=== PATIENT | male | born 1945 | race Caucasian/White ===

== ENCOUNTER 2018-05-28 11:58 | Observation (INO) | payer MEDICARE, OTHER ==
[~2018-05-28] VITALS: Ht 165.1 cm; Wt 74.4 kg
[~2018-05-28 11:58] MED LIST: CARVEDILOL3.125 MG PO; KLONOPIN1 MG PO; LISINOPRIL10 MG PO; PRAVASTATIN SOD40 MG PO; ZANTAC150 MG PO
[2018-05-28] MEDS ORDERED: LASIX80 MG PO (12:55)
[2018-05-28] MEDS ORDERED: FLUOXETINE HCL20 MG PO (12:55)
[2018-05-28] MEDS ORDERED: COREG12.5 MG PO (12:55)
[2018-05-28] MEDS ORDERED: ASPIR 8181 MG PO (12:55)
[2018-05-28] MEDS ORDERED: LASIX40 MG PO (12:55)
[2018-05-28] MEDS ORDERED: NITROGLYCERIN0.4 MG SL (12:55)
[2018-05-28 13:06] LABS: BASOPHILS # (AUTO) 0.1 (0.0-0.1); BASOPHILS % 0.4 % (0.0-1.0); EOSINOPHILS # (AUTO) 0.2 (0.0-0.4); EOSINOPHILS % 1.5 % (0.0-6.0); HEMATOCRIT 37.1 % (38.2-49.6); HEMOGLOBIN 12.2 g/dL (14.0-18.0); LYMPHOCYTES # (AUTO) 2.7 (1.0-3.2); LYMPHOCYTES % 24.3 % (18.0-39.1); MEAN CORPUSCULAR HEMOGLOBIN 30.2 pg (28-32); MEAN CORPUSCULAR HGB CONC 32.9 g/dL (31-35); MEAN CORPUSCULAR VOLUME 91.8 fL (81-99); MONOCYTES % 8.8 % (4.4-11.3); NEUTROPHILS # (AUTO) 7.2 (2.1-6.9); NEUTROPHILS % 64.6 % (38.7-80.0); PLATELET COUNT 398 x10e3/uL (140-360); RED BLOOD COUNT 4.04 x10e6/uL (4.3-5.7); RED CELL DISTRIBUTION WIDTH 12.6 % (11.7-14.4)
[2018-05-28 13:15] LABS: INR 0.95; PROTHROMBIN TIME 13.6 seconds (11.9-14.5)
[2018-05-28 13:16] LABS: PARTIAL THROMBOPLASTIN TIME 37.1 seconds (23.8-35.5)
[2018-05-28 13:25] LABS: ALBUMIN 3.7 g/dL (3.5-5.0); ALBUMIN/GLOBULIN RATIO 0.8 (0.8-2.0); ANION GAP 16.5 mmol/L (8-16); CALCIUM 10.1 mg/dL (8.4-10.2); CREATININE, SERUM 1.39 mg/dL (0.72-1.25); POTASSIUM 3.5 mmol/L (3.5-5.1)
[2018-05-28 13:31] LABS: CREATINE KINASE MB 0.8 ng/mL (0-5.0)
[2018-05-28] MEDS ORDERED: SODIUM CHLORIDE 0.9% 1000ML 1,000 ML ONE (14:21)
[2018-05-28] MEDS ORDERED: METHYLPREDNISOLONE SOD SUCC 125 MG/2ML VIAL IV ONE (14:30)
--- NOTE | 2018-05-28 14:57 | Diagnostic Imaging Report ---
EXAMINATION: CHEST 2 VIEWS INDICATION: ^SOB, CP ^[id number] ^1311 COMPARISON: None FINDINGS: PA and lateral views TUBES and LINES: Triple lead left chest wall cardiac device in place. LUNGS: Lungs are well inflated. Lungs are clear. There is no evidence of pneumonia or pulmonary edema. PLEURA: No pleural effusion or pneumothorax. HEART AND MEDIASTINUM: The cardiomediastinal silhouette is unremarkable. Median sternotomy wires. BONES AND SOFT TISSUES: No acute osseous lesion. Soft tissues are unremarkable. UPPER ABDOMEN: No free air under the diaphragm. IMPRESSION: No acute thoracic abnormality. Signed by: Dr. Michael Borja MD on 05/28/2018 2:54 PM
--- NOTE | 2018-05-28 16:17 | Diagnostic Imaging Report ---
EXAM: CT Chest WITH contrast (PE Protocol) INDICATION: ^R/O LEFT PE ^[id number] ^1520 ^N COMPARISON: Same day chest x-ray. TECHNIQUE: Chest was scanned utilizing a multidetector helical scanner from the lung apex through the level of the diaphragm after administration of IV contrast. Thin section reconstructions were obtained with special concentration on the pulmonary arteries. Coronal and sagittal reformations were obtained. Dose modulation, iterative reconstruction, and/or weight based adjustment of the mA/kV was utilized to reduce the radiation dose to as low as reasonably achievable. Pulmonary embolism protocol was performed. IV CONTRAST: 100 mL of Isovue-370 COMPLICATIONS: None RADIATION DOSE: Total DLP: 902.34 mGy*cm Estimated effective dose: (DLP x 0.014 x size factor) mSv CTDIvol has been reviewed. It is below the limits set by the Radiation Protocol Committee (RPC). FINDINGS: LINES/ TUBES: Left chest wall cardiac device with leads terminating in right atrium, right ventricle and coronary sinus. LUNGS AND AIRWAYS: No filling defect is identified within the pulmonary arteries to the segmental level. Incidentally seen azygous lobe. Upper lobe predominant centrilobular emphysematous changes. Biapical scarring. 8 mm left lower lobe nodule (series 6, image 84). 4 mm right lower lobe nodule (6/73). Airways are normal. PLEURA: The pleural spaces are clear. HEART AND MEDIASTINUM: The thyroid gland is normal. No mediastinal, hilar or axillary lymphadenopathy. The heart is normal in size.. There is no pericardial effusion. . Main pulmonary artery measures 2.6 cm in diameter and the ascending aorta measures 4.2 cm. Severe atherosclerotic calcification of coronary arteries. Median sternotomy wires. UPPER ABDOMEN: Unremarkable. BONES: The visualized bony thorax is within normal limits. SOFT TISSUES: Unremarkable. IMPRESSION: No pulmonary emboli. Emphysematous changes of the lungs. Bilateral lower lobe lung nodules, measuring up to 8 mm. Recommend follow-up in 6-12 months to ensure stability. Ectatic ascending thoracic aorta, measuring 4.2 cm. Signed by: Dr. Michael Borja MD on 05/28/2018 4:13 PM
--- NOTE | 2018-05-28 16:25 | Diagnostic Imaging Report ---
EXAM: CT Abdomen and Pelvis WITHOUT contrast INDICATION: ^LEFT FLANK PAIN KSP ^[id number] ^1520 ^N COMPARISON: None. TECHNIQUE: Abdomen and pelvis were scanned utilizing a multidetector helical scanner from the lung base to the pubic symphysis without administration of IV contrast. Absence of intravenous contrast decreases sensitivity for detection of focal lesions and vascular pathology. Coronal and sagittal reformations were obtained. Routine protocol was performed. IV CONTRAST: None ORAL CONTRAST: Water COMPLICATIONS: None RADIATION DOSE: Total DLP: 902.34 mGy*cm Estimated effective dose: (DLP x 0.015 x size factor) mSv CTDIvol has been reviewed. It is below the limits set by the Radiation Protocol Committee (RPC). FINDINGS: LINES and TUBES: None. LOWER THORAX: See dedicated chest CT report of same date. HEPATOBILIARY: Unenhanced liver is unremarkable. No biliary ductal dilation. GALLBLADDER: No radio-opaque stones or sludge. No wall thickening. SPLEEN: No splenomegaly. PANCREAS: No focal masses or ductal dilatation. Pancreatic uncinate process calcifications, probably sequela of chronic pancreatitis. ADRENALS: No adrenal nodules KIDNEYS/URETERS: No hydronephrosis. Limited for evaluation of renal parenchyma without intravenous contrast. 4 mm left lower pole calculus. 3 mm right midpole calculus. GI TRACT: No abnormal distention, wall thickening, or evidence of bowel obstruction. Sigmoid diverticulosis without evidence of diverticulitis. Appendix is normal. PELVIC ORGANS/BLADDER: Grossly unremarkable. Evaluation is limited due to streak artifacts from right hip prosthesis. LYMPH NODES: No lymphadenopathy. VESSELS: Mild aortoiliac atherosclerotic disease. Mild aneurysmal dilatation of infrarenal abdominal aorta, measuring 3.2 cm. PERITONEUM / RETROPERITONEUM: No free air or fluid. BONES: No acute osseous abnormality. Right hip arthroplasty. Degenerative changes of the lumbar spine, most severe at L4-L5 and L2-L3. SOFT TISSUES: Small fat-containing right inguinal hernia. IMPRESSION: 1. Bilateral subcentimeter nonobstructive renal calculi. No hydronephrosis or evidence of obstructive urolithiasis. 2. Sigmoid diverticulosis without evidence of diverticulitis. 3. Mild aneurysmal dilatation of infrarenal abdominal aorta measuring 3.2 cm. Signed by: Dr. Michael Borja MD on 05/28/2018 4:22 PM
[2018-05-28] MEDS ORDERED: NITROGLYCERIN 0.4 MG SUBL SL PRN (17:00)
[2018-05-28] MEDS ORDERED: MORPHINE SULFATE 2 MG/ML SYR IV PRN (17:00)
[2018-05-28] MEDS ORDERED: SODIUM CHLORIDE FLUSH 10 ML SYR INJ PRN (17:00)
--- OUTSIDE RECORDS SUMMARY | 2018-05-28 17:12 | XMS REPORT ---
Author Author [facility] Address Unknown Phone Unavailable Care Team Providers Care Measurement Specialist Name Role Phone Oneal CARRASCO Unavailable Unavailable Problems This patient has no known problems. Allergies, Adverse Reactions, Alerts This patient has no known allergies or adverse reactions. Medications This patient has no known medications. Results Test Description Test Time Test Comments Text Results Atomic Results Result Comments CT ABDOMEN/PELVIS WO 2018-05-28 16:14:00 [place] [address] Patient Name: PAMELA DEJESUS MR #: [id number] : 1945 Age/Sex: 73/M Req #: [id number] Adm Physician: Ordered by: SARAHI CARRASCO MD Report #: [id number] Location: ER Room/Bed: Procedure: [id number] CT/CT ABDOMEN/PELVIS WO Exam Date: 05/28/18 Exam Time: 1520 REPORT STATUS: Signed EXAM: CT Abdomen and Pelvis WITHOUT contrast MILLIE CATION: LEFT FLANK PAIN KSP [id number] 1520 N COMPARISON: None. TECHNIQUE: Abdomen and pelvis were scanned utilizing a multidetector helical scanner from the lung base to the pubic symphysis without administration of IV contrast. Absence of intravenous contrast decreases sensitivity for detection of focal lesions and vascular pathology. Coronal and sagittal reformations were obtained. Routine protocol was performed. IV CONTRAST: None ORAL CONTRAST: Water COMPLICATIONS: None RADIATION DOSE: Total DLP: 902.34 mGy*cm Estimated effective dose: (DLP x 0.015 x size factor) mSv CTDIvol has been reviewed. It is below the limits set by the Radiation Protocol Committee (RPC). FINDINGS: LINES and TUBES: None. LOWER THORAX: See dedicated chest CT report of same date. HEPATOBILIARY: Unenhanced liver is unremarkable. No biliary ductal dilation. GALLBLADDER: No radio-opaque stones or sludge. No wall thickening. SPLEEN: No splenomegaly. PANCREAS: No focal masses or ductal dilatation. Pancreatic uncinate process calcifications, probably sequela of chronic pancreatitis. ADRENALS: No adrenal nodules KIDNEYS/URETERS: No hydronephrosis. Limited for evaluation of renal parenchyma without intravenous contrast. 4 mm left lower pole calculus. 3 mm right midpole calculus. GI TRACT: No abnormal distention, wall thickening, or evidence of bowel obstruction. Sigmoid diverticulosis without evidence of diverticulitis. Appendix is normal. PELVIC ORGANS/BLADDER: Grossly unremarkable. Evaluation is limited due to streak artifacts from right hip prosthesis. LYMPH NODES: No lymphadenopathy. VESSELS: Mild aortoiliac atherosclerotic disease. Mild aneurysmal dilatation of infrarenal abdominal aorta, measuring 3.2 cm. PERITONEUM / RETROPERITONEUM: No free air or fluid. BONES: No acute osseous abnormality. Right hip arthroplasty. Degenerative changes of the lumbar spine, most severe at L4-L5 and L2-L3. SOFT TISSUES: Small fat-containing right inguinal hernia. IMPRESSION: 1. Bilateral subcentimeter no nobstructive renal calculi. No hydronephrosis or evidence of obstructive urolithiasis. 2. Sigmoid diverticulosis without evidence of diverticulitis. 3. Mild aneurysmal dilatation of infrarenal abdominal aorta measuring 3.2 cm. Signed by: Dr. Michael Borja MD on 05/28/2018 4:22 PM Dictated By: MICHAEL BORJA MD 21 Transcribed By: LUCÍA on 05/28/181621 COPY TO: SARAHI CARRASCO MD CT CHEST W 2018-05-28 16:03:00 [place] [address] Patient Name: PAMELA DEJESUS MR #: [id number] : 1945 Age/Sex: 73/M Req #: [id number] Adm Physician: Ordered by: SARAHI CARRASCO MD Report #: [id number] Location: ER Room/Bed: Procedure: [id number] CT/CT CHEST W Exam Date: 05/28/18 Exam Time: 1520 REPORT STATUS: Signed EXAM: CT Chest WITH contrast (PE Protocol) INDICATION: R/O LEFT PE [id number] 1520 N COMPARISON: Same day chest x-ray. TECHNIQUE: Chest was scanned utilizing a multidetector helical scanner from the lung apex through the level of the diaphragm after administration of IV contrast. Thin section reconstructions were obtained with special concentration on the pulmonary arteries. Coronal and sagittal reformations were obtained. Dose modulation, iterative reconstruction, and/or weight based adjustment of the mA/kV was utilized to reduce the radiation dose to as low as reasonably achievable. Pulmonary embolism protocol was performed. IV CONTRAST: 100 mL of Isovue-370 COMPLICATIONS: None RADIATION DOSE: Total DLP: 902.34 mGy*cm Estimated effective dose: (DLP x 0.014 x size factor) mSv CTDIvol has been reviewed. It is below the limits set by the Radiation Protocol Committee (RPC). FINDINGS: LINES/ TUBES: Left chest wall cardiac device with leads terminating in right atrium, right ventricle and coronary sinus. LUNGS AND AIRWAYS: No filling defect is identified within the pulmonary arteries to the segmental level. Incidentally seen azygous lobe. Upper lobe predominant centrilobular emphysematous changes. Biapical scarring. 8 mm left lower lobe nodule (series 6, image 84). 4 mm right lower lobe nodule (6/73). Airways are normal. PLEURA: The pleural spaces are clear. HEART AND MEDIASTINUM: The thyroid gland is normal. No mediastinal, hilar or axillary lymphadenopathy. The heart is normal in size.. There is no pericardial effusion. . Main pulmonary artery measures 2.6 cm in diameter and the ascending aorta measures 4.2 cm. Severe atherosclerotic calcification of coronary arteries. Median sternotomy wires. UPPER ABDOMEN: Unremarkable. BONES: The visualized bony thorax is within normal limits. SOFT TISSUES: Unremarkable. IMPRESSION: No pulmonary emboli. Emphysematous changes of the lungs. Bilateral lower lobe lung nodules, measuring up to 8 mm. Recommend follow-up in 6-12 months to ensure stability. Ectatic ascending thoracic aorta, measuring 4.2 cm. Signed by: Dr. Michael Borja MD on 05/28/2018 4:13 PM Dictated By: MICHAEL BORJA MD 12 Transcribed By: LUCÍA on 05/28/181612 COPY TO: SARAHI CARRASCO MD CHEST 2 VIEWS 2018-05-28 14:53:00 [place] [address] Patient Name: PAMELA DEJESUS MR #: [id number] : 1945 Age/Sex: 73/M Req #: [id number] Adm Physician: Ordered by: SARAHI CARRASCO MD Report #: [id number] Location: ER Room/Bed: Procedure: [id number] DX/CHEST 2 VIEWS Exam Date: 05/28/18 Exam Time: 1310 REPORT STATUS: Signed EXAMINATION: CHEST 2 VIEWS INDICATION: SOB, CP [id number] COMPARISON: None FINDINGS: PA and lateral views TUBES and LINES: Triple lead left chest wall cardiac device in place. LUNGS: Lungs are well inflated. Lungs are clear. There is no evidence of pneumonia or pulmonary edema. PLEURA: No pleural effusion or pneumothorax. HEART AND MEDIASTINUM: The cardiomediastinal silhouette is unremarkable. Median sternotomy wires. BONES AND SOFT TISSUES: No acute osseous lesion. Soft tissues are unremarkable. UPPER ABDOMEN: No free air under the diaphragm. IMPRESSION: No acute thoracic abnormality. Signed by: Dr. Michael Borja MD on 05/28/2018 2:54 PM Dictated By: MICHAEL BORJA MD [id number] Transcribed By: LUCÍA on 05/28/18 2787 COPY TO: SARAHI CARRASCO MD
[2018-05-28] MEDS ORDERED: LISINOPRIL 20 MG TAB PO ONE (17:30)
[2018-05-28] MEDS: FAMOTIDINE 20 MG TAB PO SCH (18:38)
[2018-05-28] MEDS: CARVEDILOL 3.125 MG TAB PO SCH (18:38)
[2018-05-28] MEDS ORDERED: IOPAMIDOL 370 MG/ML 200 ML INFUS..BTL INJ ONE (18:50)
[2018-05-28] MEDS ORDERED: SODIUM CHLORIDE 0.9% 50ML 50 ML ONE (18:50)
--- NOTE | 2018-05-28 18:55 | NUR ---
RCVED PT REPORT FROM ERIN RN, PT A&Ox3, RESP EVEN AND UNLABORED, SKIN W&D AND NORMAL COLOR, NO CHANGE IV SITE. PT AWARE OF PLAN OF CARE AND DENIES ANY OTHER CONCERNS. FAMILY AT BEDSIDE. WILL CONTINUE TO MONITOR
[2018-05-28 20:00] VITALS: BP 146/64
--- NOTE | 2018-05-28 20:20 | NUR ---
PT REPORT CALLED TO NOAH LIZARRAGA.
[2018-05-28] MEDS ORDERED: PRAVASTATIN 20 MG TAB PO SCH (21:00)
[2018-05-28 21:17] VITALS: BP 146/64
[2018-05-28] MEDS ORDERED: MELATONIN3 M1 PO (21:19)
[2018-05-28] MEDS ORDERED: CLONAZEPAM 1 MG TAB PO PRN (21:30)
[2018-05-28] MEDS ORDERED: MELATONIN 5 MG TABLET PO ONE (21:43)
[2018-05-28] MEDS ORDERED: MELATONIN 5 MG TABLET PO SCH (21:47)
[2018-05-28 22:32] VITALS: BP 146/64
[2018-05-28 22:42] LABS: CREATINE KINASE MB 0.6 ng/mL (0-5.0)
[2018-05-29] VITALS: BP 102/59
[2018-05-29 04:00] VITALS: BP 122/58
[2018-05-29 05:09] LABS: BASOPHILS % 0.1 % (0.0-1.0); EOSINOPHILS % 0.1 % (0.0-6.0); HEMOGLOBIN 11.3 g/dL (14.0-18.0); LYMPHOCYTES # (AUTO) 1.5 (1.0-3.2); MEAN CORPUSCULAR HEMOGLOBIN 29.9 pg (28-32); MEAN CORPUSCULAR HGB CONC 33.2 g/dL (31-35); MEAN CORPUSCULAR VOLUME 89.9 fL (81-99); MONOCYTES # (AUTO) 0.3 (0.2-0.8); MONOCYTES % 1.3 % (4.4-11.3); NEUTROPHILS # (AUTO) 17.4 (2.1-6.9); NEUTROPHILS % 89.8 % (38.7-80.0); PLATELET COUNT 340 x10e3/uL (140-360); RED BLOOD COUNT 3.78 x10e6/uL (4.3-5.7); RED CELL DISTRIBUTION WIDTH 12.6 % (11.7-14.4)
[2018-05-29 05:44] LABS: CREATINE KINASE MB 0.7 ng/mL (0-5.0)
[2018-05-29 06:07] LABS: ANION GAP 10.5 mmol/L (8-16); CALCIUM 9.3 mg/dL (8.4-10.2); CHOL/HDL RATIO 3.3 (3.9-4.7); CREATININE, SERUM 1.59 mg/dL (0.72-1.25); POTASSIUM 4.5 mmol/L (3.5-5.1)
[2018-05-29 07:35] VITALS: BP 122/58
[2018-05-29 08:12] VITALS: BP 129/62
[2018-05-29] MEDS ORDERED: ASPIRIN 81 MG ENTERIC COATED PO SCH (09:00)
[2018-05-29] MEDS: FAMOTIDINE 20 MG TAB PO SCH (09:32)
[2018-05-29] MEDS: CARVEDILOL 3.125 MG TAB PO SCH (09:33)
--- NOTE | 2018-05-29 10:30 | NUR ---
Dr. Dobbs and Dr. Segal making rounds. Patient will be discharged home and follow up as outpatient. Daughter called by patient. All questions answered at this time by .
--- NOTE | 2018-05-29 10:31 | NUR ---
EDUCATED ABOUT AU, SIGNED, FILED IN CHART, WITH COPY LEFT WITH FAMILY AT BEDSIDE. SPOKE WITH PATIENT AND FAMILY ABOUT TRANSITION OF CARE AND PREFORMED BRIEF SOCIAL ASSESSMENT TO FIND; MALE LIVES IN HOME WITH DAUGHTER, HAS JUST ARRIVED FOR[facility] AND WILL BE RELOCATING TO THIS AREA WITH HIS FAMILY. HAS A CANE THAT HE USES. DAUGHTER IS LINDA [phone] AND HER IS LAURIE [phone]. PLAN IS TO DISCHARGE HOME WITH DAUGHTER INDEPENDENTLY AND THERE ARE NO CURRENT BARRIERS TO DISCHARGE. STATES HE IS CONTACTING INSURANCE TO GET DOCTORS IN THIS AREA TO BE ASSIGNED TO HIM.
--- NOTE | 2018-05-29 11:21 | History and Physical ---
SHORTSTAY SUMMARY This is a history and physical as well as a discharge summary combined. CHIEF COMPLAINT: Left flank pain. HPI: This is a 73-year-old with history of coronary artery disease in the past. He also reports having underlying heart failure and has an AICD. He recently moved from [place] to live with his family. He was seeing a radiation control technician while there in [place]. The patient reports to the hospital. He was complaining of left flank pain. There are no reports of any shortness of breath, cough, congestion, any hematuria or any chest pain. Patient was admitted under observation for further evaluation by cardiology. I discussed this case with cardiology, and it was felt this was likely all atypical in nature. He was cleared to be discharged from their standpoint with outpatient followup. The patient had a significant amount of imaging studies that were performed which just showed nephrolithiasis but no evidence of any obstruction. Patient was given steroids for unknown etiology. The patient was seen and evaluated at bedside on the medical floor, currently doing well with no other issues. REVIEW OF SYSTEMS: Pertinent positives: Left flank pain. Pertinent negatives: Denies any chest pain, palpitations, nausea, vomiting, diarrhea, dysuria, hematuria, frequency, urgency, lightheadedness, dizziness, abdominal pain, headache, shortness of breath, cough, congestion, fever or any other complaints. The rest of the 14-point review of systems have been reviewed with the patient and are negative. ALLERGIES: ORAL AND IV DYE AND PENICILLINS. HOME MEDICATIONS: He takes: 1. Aspirin 81 mg daily. 2. Coreg 12.5 mg daily. 3. He takes fluoxetine 40 mg daily. 4. Lasix 40 mg daily. 5. Ranitidine 150 mg b.i.d. 6. Pravastatin 40 mg daily. 7. Klonopin 0.5 mg as needed. 8. Melatonin 10 mg at bedtime. PAST MEDICAL HISTORY: He has anxiety. History of CAD in the past. He has an AICD. He has CHF, hypertension, acid reflux. PAST SURGICAL HISTORY: He had an AICD placement. FAMILY HISTORY: Diabetes. SOCIAL HISTORY: No drugs. No alcohol. Does not smoke. Good social support. VITAL SIGNS: Temperature is 96. Pulse 61. Respiratory rate 16. Blood pressure 129/62. Pulse ox 96% on room air. LAB FINDINGS: His white count is 19.3. On admission, it was 11.1. He was given a dose of Solu-Medrol for unknown etiology. Hemoglobin 11.3, hematocrit 34, and platelets of 340. Sodium 132, potassium 4.5, chloride 96, bicarbonate 39, anion gap 10, BUN 20, creatinine . His glucose is 162, calcium 9.3. His troponins were negative times 3. Albumin was 3.7. His LDL was 85. MICROBIOLOGY: None. IMAGING STUDIES: Chest x-ray was found to be negative. CT chest with IV contrast, PE protocol, shows no evidence of pulmonary embolism. He has some emphysematous changes in the lungs. Bilateral lower lobe nodules measuring 8 mm. Needs followup in 6 to 12 months. I have discussed this with the patient, and he will follow up with his primary care physician and get repeat in [address] abdomen and pelvis shows bilateral subcentimeter nonobstructing renal calculi. No hydronephrosis or evidence of obstructive urolithiasis. Sigmoid diverticulosis without evidence of diverticulitis. Minimal aneurysmal dilatation of infrarenal abdominal aorta measuring 2.2 cm. That needs to be closely followed up with cardiology, which he verbalized an understanding. PHYSICAL EXAMINATION GENERAL: Not in acute distress, alert and oriented times 3, comfortable on examination. HEENT: Head normocephalic, atraumatic. Eyes: Pupils are equal, round and reactive to light bilaterally. The extraocular movements are intact bilaterally. NECK: Supple. Good range of motion. No evidence of any erythema or exudates in the posterior pharynx. Has poor dentition. PULMONARY: Clear to auscultation bilateral. No wheezing. No rales. No rhonchi. No crackles appreciated. CARDIOVASCULAR: Positive S1 and S2. No murmurs, rubs, or gallops appreciated. ABDOMEN: Soft, nontender and nondistended to palpation. Bowel sounds present. MUSCULOSKELETAL: Strength is 5/5 throughout. No evidence of any muscle deficit on examination. No weakness appreciated. NEUROLOGICAL: Cranial nerves II through XII are grossly intact. No evidence of any neurological deficits on exam. SKIN: Intact. Warm to touch. Good cap refill. PSYCHIATRIC: Normal affect and mood. EXTREMITIES: No edema. Good range of motion throughout. IMPRESSION 1. Atypical chest pain. 2. Left flank pain, now resolved. 3. Steroid-induced leukocytosis. 4. Pulmonary lung nodules. 5. Concerns for underlying chronic obstructive pulmonary disease. 6. Hypertension. 7. Anxiety. PLAN: This will serve as a history and physical and discharge summary combined. The patient's symptoms are atypical in nature of chest pain. Cardiac enzymes were negative. I discussed this with cardiology, and the patient has been cleared by cardiology for discharge. From their standpoint, will follow up in their office. He will get an interrogation of the AICD in the office. He did have steroid-induced leukocytosis due to Solu-Medrol for unknown etiology of why they gave him that in the ER. The patient had no symptoms, no shortness of breath, no wheezing, no recent sickness. He is currently afebrile, and he has no symptoms whatsoever. He will just need repeat CBC and chemistry in about 2 to 5 days. In relation to his lung nodules, I discussed this with him to follow up with his PCP, which we will assign him a primary care doctor so he can follow up in about 6 to [address] imaging. His blood pressure is stable. Will resume the same home medications as well as anxiety medications that were restarted. Otherwise, the patient is doing well. He has no more complaints of pain, and he is back to his normal baseline. Patient will resume the same home medications with no changes. He will be discharged home and has been cleared by cardiology. Job#: [id number]
--- NOTE | 2018-05-29 11:28 | NUR ---
Patient discharged home with written instructions. Both daughter and patient verbalized understanding. IV dc'd, cath intact and small dressing applied.
--- NOTE | 2018-05-29 13:04 | Consultation ---
DATE OF CONSULTATION: May 29, 2018 CARDIAC CONSULTATION REASON FOR CONSULTATION: Advanced heart disease. HISTORY: A 73-year-old gentleman who is known with longstanding history of coronary artery disease. He had myocardial infarction at least twice, coronary artery bypass surgery in 2014 for 3 vessels and mitral valve repair using mitral ring. He had ICD placement in July 2015. He had another cardiac catheterization last year because of another myocardial infarction and had been told that there are more blockages. The treatment is medical. Patient does have history of hypertension and hyperlipidemia. There is history of acute tubular necrosis in 2014 and since then patient does have chronic renal insufficiency. Patient came to this institution because of left flank pain all suddenly. He was worried about something going on, maybe his defibrillator fired, but the pain is left flank pain. The pain disappear. Patient had CT with contrast which showed no pulmonary embolism, ectatic aorta, emphysema changes, and pulmonary nodules. Patient wants to go home today, "its Day." Patient's symptoms are class III heart failure like symptoms, seems to be currently compensated. There is no orthopnea, no paroxysmal nocturnal dyspnea. No syncope or presyncope. REVIEW OF SYSTEMS GENERAL: No fever. No chills. HEENT: Decreased hearing. PULMONARY: As per acute illness. CARDIAC: As per acute illness. GI: No hematemesis. No melena. : No hematuria. No dysuria. MUSCULOSKELETAL: Back pain, at time right hip pain. NEUROLOGICAL: No localized motor or sensory deficits. No headaches. No weakness. No seizure activities. SOCIAL HISTORY: He is . He stopped smoking 10 years ago. He is not alcohol drinker. He was in for 20 years. 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 He was [employer]. HOME MEDICATIONS: Include aspirin 81 mg a day, lisinopril 20 mg a day, Coreg 6.25 mg twice a day, Protonix 40 mg a day, Klonopin 0.5 mg a day. ALLERGIES: PENICILLIN AND PROBABLY HE HAD REACTION TO ADENOSINE GIVEN AT ONE TIME WHEN HE GOT A LOT OF SWEATING AND HE WAS NOT FEELING WELL AND THIS WAS DONE PRIOR TO HIS BYPASS. FAMILY HISTORY: Father at age 70, he had myocardial infarction and congestive heart failure. Mother at age 91, was blood problem, possible septicemia. Ten siblings, 7 brothers and 3 sisters; few with cancer, few with accidental . He does have one adopted daughter and one [place] daughter, both of them are relatively well. PAST MEDICAL HISTORY 1. Myocardial infarction and coronary artery bypass surgery in 2015 with mitral valve repair. 2. ICD in 2016. 3. Hyperlipidemia. 4. Hypertension. 5. Left collar fracture. 6. Left hip replacement. 7. Emphysema. 8. Decreased hearing. PHYSICAL EXAMINATION VITALS: Height of 5 feet 5 inches, weight of 164 pounds. Blood pressure 120/60, heart rate of 80, respiratory rate of 18. HEENT: Pupils are reactive. NECK: No elevation of jugular venous pulsation. CHEST: Clear to auscultation and percussion. HEART: PMI 5th left intercostal space. Normal 1st and 2nd heart sounds. ABDOMEN: Soft. Good bowel sounds. No organomegaly. No abdominal bruits. EXTREMITIES: No cyanosis. No clubbing. No edema. No distal pulses below femoral. NEUROLOGIC: Awake, alert, oriented. No motor or sensory deficits. LABORATORY DATA: Sodium of 133, potassium 4.5, BUN is 20, creatinine 1.6. Hemoglobin of 11.3, hematocrit 34%, white blood cell count of 19.3. IMPRESSION 1. Left flank pain, questionable etiology, seems to be resolved. 2. Advanced coronary artery disease, status post prior myocardial infarction prior to bypass surgery, subsequently 3 vessels bypass surgery and mitral valve repair for congestive heart failure, with following that one more myocardial infarction last year and patient had "more blockages." 3. Congestive heart failure. 4. Implantable cardioverter-defibrillator. 5. Chronic renal insufficiency with history of acute tubular necrosis on chronic renal insufficiency. 6. Right hip replacement. 7. Hypertension. 8. Anxiety. 9. Decreased hearing. PLAN: Patient already ruled out for myocardial infarction with serial cardiac enzymes. He is on appropriate medication. Unfortunately, he got 100 mL of . He needs to have his lab repeated with attention to renal function. Will continue Coreg. Will continue his statin. Will continue his medications. His questions are answered. Patient needs close observation and close management. 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 Job#: [id number] RACHAEL
== END 2018-05-29 11:26 | disposition home or self-care (01) ==
LOC: ER 11:58 → ERHOLD 16:53 → IMCU 20:40
PROVIDERS: ADMIT Internal Medicine; ATTEND Internal Medicine
DX: R07.89 Other chest pain (principal); I25.10 Atherosclerotic heart disease of native coronary artery without angina pectoris; I11.0 Hypertensive heart disease with heart failure; I50.9 Heart failure, unspecified; E78.5 Hyperlipidemia, unspecified; Z95.810 Presence of automatic (implantable) cardiac defibrillator; Z95.2 Presence of prosthetic heart valve; N20.0 Calculus of kidney; F41.9 Anxiety disorder, unspecified; K21.9 Gastro-esophageal reflux disease without esophagitis; Z83.3 Family history of diabetes mellitus; R91.8 Other nonspecific abnormal finding of lung field; D72.829 Elevated white blood cell count, unspecified; T38.0X5A Adverse effect of glucocorticoids and synthetic analogues, initial encounter; I25.2 Old myocardial infarction; Z95.1 Presence of aortocoronary bypass graft; Z82.49 Family history of ischemic heart disease and other diseases of the circulatory system; Z96.642 Presence of left artificial hip joint; R10.9 Unspecified abdominal pain; N28.9 Disorder of kidney and ureter, unspecified; Z88.0 Allergy status to penicillin; Z91.041 Radiographic dye allergy status
CPT/HCPCS: 36415 ×2; 71046; 71260; 74176; 80048; 80053; 80061; 82550 ×2; 82553 ×2; 82948; 83880; 84484 ×2; 85025 ×2; 85379; 85610; 85730; 93005; 99284; G0378 ×2; J2930; J7030; Q9967